=== PATIENT | female | born 1970 | race Caucasian/White ===

== ENCOUNTER → 2016-09-28 | Outpatient (CLI) | payer OTHER | LOC: RAD 01:42 | DX: Z12.31 Encounter for screening mammogram for malignant neoplasm of breast (principal) ==

== ENCOUNTER → 2018-10-15 | Outpatient (CLI) | payer OTHER | LOC: RAD 01:26 → ULTRA 01:26 → RAD 15:59 | DX: Z12.31 Encounter for screening mammogram for malignant neoplasm of breast (principal); N63.11 Unspecified lump in the right breast, upper outer quadrant; M81.0 Age-related osteoporosis without current pathological fracture ==